=== PATIENT | female | born 1985 | race Caucasian/White ===

== ENCOUNTER 2017-12-20 06:50 | Emergency (ER) | payer OTHER ==
[~2017-12-20] VITALS: Ht 157.5 cm; Wt 45.4 kg
[~2017-12-20 06:50] MED LIST: DOLOGESIC CAPSU1 CAP PO
== END 2017-12-20 18:38 | disposition home or self-care (01) ==
LOC: ER 06:50
DX: K82.4 Cholesterolosis of gallbladder (principal); R10.11 Right upper quadrant pain
CPT/HCPCS: 76700; 74177; Q9965